=== PATIENT | male | born 1950 | race Hispanic/Latino ===

== ENCOUNTER 2017-09-30 16:56 | Inpatient (IN) ==
[2017-09-30 17:14] LABS: #Eosinphils 0.1 thou/uL (0.0-0.7); #Monocytes 0.7 thou/uL (0.11-0.59); #Neutrophils 7.8 thou/uL (1.40-6.50); %Basophils 0.3 % (0.0-1.0); %Eosinophils 0.7 % (0.0-10.0); %Monocytes 6.2 % (0.0-10.0); %Neutrophils 73.8 % (42.0-75.0); Hemoglobin 16.5 g/dL (14.0-18.0); Mean Corpuscular HGB CONC 35.1 g/dL (32.0-36.0); Mean Corpuscular Hemoglobin 31.7 pg (27.0-31.0); Mean Corpuscular Volume 90.2 fl (80.0-94.0); Mean Platelet Volume 10.6 fL (7.4-10.4); Platelet Count 157 thou/uL (130-400); RBC Distribution Width 13.4 % (11.5-14.5); Red Blood Cell (RBC) Count 5.22 mill/uL (4.70-6.10); White Blood Cell (WBC) Count 10.5 thou/uL (4.8-10.8)
[2017-09-30 17:19] LABS: INR-International Normal Ratio 1.1; PTT 33.7 SEC (22.9-36.1); Prothrombin Time 14.1 SEC (12.0-14.7)
[2017-09-30 17:27] LABS: ALT (SGPT) 30 U/L (8-55); AST (SGOT) 22 U/L (5-34); Albumin 4.3 g/dL (3.4-4.8); Alkaline Phosphatase 84 U/L (40-150); Anion Gap 12 mmol/L (10-20); BUN (Urea Nitrogen) 11 mg/dL (8.4-25.7); Bilirubin, Total 0.8 mg/dL (0.2-1.2); Calc. Creatinine Clearance 0 mL/min (70-130); Calcium 10.1 mg/dL (7.8-10.44); Carbon Dioxide 24 mmol/L (23-31); Chloride 105 mmol/L (98-107); Estimated GFR-MDRD Greater than 90; Globulin 3.7 g/dL (2.4-3.5); Glucose 100 mg/dL (80-115); Potassium 4.1 mmol/L (3.5-5.1); Sodium 137 mmol/L (136-145)
[2017-09-30 17:30] LABS: CKMB 2.9 ng/mL (0-6.6)
--- NOTE | 2017-09-30 18:34 | CT ---
CT OF THE BRAIN WITHOUT CONTRAST 09/30/16 COMPARISON: None. HISTORY: Numbness and tingling in the right side of the body and face with moderate facial drooping. Stroke al ert. TECHNIQUE: Multiple contiguous axial images were obtained in a CT of the brain without contrast. FINDINGS: The brain is normal in morphology and attenuation without focal lesions or confluent areas of infarct ion. There is no evidence of hydrocephalus, intracranial hemorrhage, or extra-axial fluid collection. The calvarium and overlying soft tissues are unremarkable. The visualized paranasal sinuses and masto id air cells are well aerated. IMPRESSION: No evidence of acute intracranial abnormality. Dr. Guerra notified of the findings at 5:06 p.m. on 09/30/17. POS: SAMPSON
[2017-09-30] MEDS ORDERED: Acetaminophen 325 MG TAB PO PRN (19:55)
[2017-09-30] MEDS ORDERED: Guaifenesin DM 100-10/5 ML UDCUP PO PRN (19:55)
[2017-09-30] MEDS ORDERED: Amlodipine 10 MG TAB PO SCH (20:45)
[2017-09-30] MEDS: Famotidine 20 MG TAB PO SCH (21:34)
[2017-09-30] MEDS: Atorvastatin Calcium 20 MG TAB PO SCH (21:34)
[2017-09-30] MEDS: Metoprolol Tartrate 25 MG TAB PO SCH (21:35)
[2017-09-30 22:16] VITALS: BMI 26.2
--- NOTE | 2017-09-30 23:49 | HP ---
REASON FOR ADMISSION: Transient ischemic attack with right-sided paraesthesias. 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 Around this time , the patient developed right-sided tingling and numbness. This happened mainly on the face, hand and later to the lower extremities. He also felt dizzy at the same time. He felt like his right side of his face was swollen. He was able to move all his extremities. As this was not relenting, the patient was finally brought to emergency room later in the evening by his children. He came to ER around 5:25 p.m. There are no complaints of chest pain , palpitation, PND or orthopnea. No prior stroke. 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 His last follow up with the primary care physician was almost 8 years back when he had flu-like illness. He does not follow up on a regular basis. He has no primary care physician in fact. 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 CURRENT MEDICATIONS: None. ALLERGIES: No known drug allergies. PERSONAL HISTORY: Does not abuse alcohol or drugs. No history of smoking. FAMILY HISTORY: Mother during labor. Father at the age of 92 years from old age. REVIEW OF SYSTEMS: The following complete review of systems was negative, unless otherwise mentioned in the HPI or below: Constitutional: Weight loss or gain, ability to conduct usual activities. Skin: Rash, itching. Eyes: Double vision, pain. ENT/Mouth: Nose bleeding, neck stiffness, pain, tenderness. Cardiovascular: Palpitations, dyspnea on exertion, orthopnea. Respiratory: Shortness of breath, wheezing, cough, hemoptysis, fever or night sweats. Gastrointestinal: Poor appetite, abdominal pain, heartburn, nausea, vomiting, constipation, or diarrhea. Genitourinary: Urgency, frequency, dysuria, nocturia. Musculoskeletal: Pain, swelling. Neurologic/Psychiatric: Anxiety, depression. Allergy/Immunologic: Skin rash, bleeding tendency. PHYSICAL EXAMINATION: GENERAL: The patient is a 66-year-old male who is currently not in any acute distress. VITAL SIGNS: On arrival, blood pressure was 196/96, pulse 76 per minute, respiratory rate 20 per minute, temperature 98 degrees Fahrenheit, saturating 95 % on room air. NECK: Supple, no elevated JVD. HEENT: Eyes: Extraocular muscles intact. Pupils reacting to light. Oral cavity: Mucous membranes are moist. No exudates or congestion. CARDIOVASCULAR: S1, S2 heard. Regular rhythm. RESPIRATORY: Air entry 1+ bilaterally. No rales or rhonchi. ABDOMEN: Soft, bowel sounds heard. No tenderness, rigidity or guarding. EXTREMITIES: The patient has chronic wasting of small muscles of his right hand and attributes this to him being a pitcher/baseball. No peripheral edema or calf tenderness. VASCULAR SYSTEM: Peripheral pulses 2+ bilateral, no ischemic ulcerations or gangrene. CENTRAL NERVOUS SYSTEM: The patient is alert, awake, oriented x3. Cranial nerves are grossly intact. Motor system strength is 5/5 in all 4 extremities. Tone is normal. Reflexes are 2+ bilateral. Babinski is downgoing. Sensation to touch is impaired on the right side when compared to left. Cerebellar signs are grossly intact. Gait was not tested. PSYCHIATRIC: The patient's mood is euthymic. No hallucinations or delusions. LABORATORY AND X-RAY FINDINGS: EKG done shows normal sinus rhythm at 73 beats per minute, has signs of LVH. CT brain done shows no acute cardiopulmonary abnormalities. White count of 10, H&H 16 and 47, platelet count 157 with 73% neutrophils. PT, INR, PTT within normal limits. Electrolytes are stable. BUN 11, creatinine 0.7, glucose 100. Liver enzymes within normal limits. First set of cardiac enzymes are negative. Albumin is 4.3. CLINICAL IMPRESSION AND PLAN: The patient will be under observation on telemetry for right-sided paraesthesias. We will obtain an MRI to rule out CVA. Echo with 2D Doppler and ultrasound carotids will also be obtained. He has uncontrolled hypertension and the patient does not take any medications. It is unclear if his symptoms are related to hypertension. Also, the patient has right hand small muscle wasting, but his strength is good. We will obtain a C-spine MRI as well to rule out compression if his cva is ruled out for his small muscle atrophy in right UE. He will be on full dose aspirin, small dose of Lipitor, Norvasc 10 mg daily and Lopressor 25 mg twice daily. Lipid profile in the morning and a Neurology consultation with Dr. Puri will be requested as well. We will continue to closely monitor him on the stroke unit. [facility]
[2017-10-01 05:19] LABS: #Eosinphils 0.1 thou/uL (0.0-0.7); #Lymphocytes 1.8 thou/uL (1.20-3.40); #Monocytes 0.8 thou/uL (0.11-0.59); #Neutrophils 7.4 thou/uL (1.40-6.50); %Basophils 0.3 % (0.0-1.0); %Lymphocytes 17.8 % (21.0-51.0); %Monocytes 7.6 % (0.0-10.0); %Neutrophils 73.3 % (42.0-75.0); Hemoglobin 16.3 g/dL (14.0-18.0); Mean Corpuscular Hemoglobin 31.5 pg (27.0-31.0); Mean Platelet Volume 10.6 fL (7.4-10.4); Platelet Count 171 thou/uL (130-400); RBC Distribution Width 13.5 % (11.5-14.5); Red Blood Cell (RBC) Count 5.16 mill/uL (4.70-6.10); White Blood Cell (WBC) Count 10.2 thou/uL (4.8-10.8)
[2017-10-01 05:59] LABS: Anion Gap 11 mmol/L (10-20); BUN (Urea Nitrogen) 10 mg/dL (8.4-25.7); Calc. Creatinine Clearance 106 mL/min (70-130); Calcium 9.8 mg/dL (7.8-10.44); Carbon Dioxide 25 mmol/L (23-31); Cardiac Risk 5.8 (Less than 4.5); Chloride 105 mmol/L (98-107); Cholesterol 181 mg/dl (< 200 Desired); Estimated GFR-MDRD Greater than 90; Glucose 115 mg/dL (80-115); HDL Cholesterol 31 mg/dL (>60 Neg Risk); LDL Cholesterol, Calculated 119 mg/dL; Sodium 137 mmol/L (136-145); Triglycerides 155 mg/dL (Less than 150)
[2017-10-01] MEDS ORDERED: Prevnar 13-Val Conj/PF 0.5 ML SYRINGE IM ONE (09:00)
[2017-10-01] MEDS ORDERED: FLU VACC TS2017-18 (>65YR) 0.5 ML SYRINGE IM ONE (09:00)
[2017-10-01] MEDS: Enoxaparin Sodium 40 MG/0.4 ML SYRINGE SC SCH (09:13)
[2017-10-01] MEDS: Aspirin 325 mg Enteric Coated Tablet PO SCH (09:14)
[2017-10-01] MEDS: Famotidine 20 MG TAB PO SCH ×2 (09:14→21:39)
[2017-10-01] MEDS: Metoprolol Tartrate 25 MG TAB PO SCH ×2 (09:14→21:39)
[2017-10-01] MEDS: Amlodipine 10 MG TAB PO SCH (09:14)
--- NOTE | 2017-10-01 09:18 | MRI ---
MRI BRAIN NONCONTRAST: HISTORY: TIA. FINDINGS: Within the left basal ganglia is an oval 0.8 cm focus of restricted diffusion with corresponding defe ct on the ADC mapping images. No other areas of infarct are apparent. The lesion shows subtle FLAIR signal. Mild chronic ischemic small-vessel disease is also apparent throughout the periventricular white matter of each cerebral hemisphere. There is no mass effect or shift of midline structures. IMPRESSION: Small focal area of acute infarct in the left thalamus at the expected vascular distribution of a duc lamic sugar cane planter. Call placed to [phone] was unanswered. Findings were relayed to Dominique in the emergency department at 0852 hours. CODE CR POS: SAMPSON
--- NOTE | 2017-10-01 12:08 | PDOC.PN ---
- Subjective Encounter Start Date: 10/01/17 Encounter Start Time: 09:00 Subjective: still has numbness over right half of body -: is able to move, per staff is leaning to right when amb -: no trouble swallowing - Objective Resuscitation Status: Resuscitation Status FULL:Full Resuscitation MAR Reviewed: Yes Vital Signs & Weight: Vital Signs (12 hours) Temp Pulse Resp BP BP Pulse Ox 10/01/17 11:38 98.5 F 61 18 154/74 H 96 10/01/17 09:14 62 181/83 H 10/01/17 08:00 97.8 F 62 12 181/83 H 93 L 10/01/17 04:00 97.7 F 62 16 134/63 100 Weight Weight 172 lb 8 oz I&O: 09/30/17 10/01/17 10/02/17 06:59 06:59 06:59 Intake Total 480 Balance 480 Result Diagrams: 10/01/17 05:01 10/01/17 05:01 Phys Exam - Physical Examination HEENT: PERRLA, moist MMs Neck: no JVD, supple Respiratory: no wheezing, no rales Cardiovascular: RRR, no significant murmur Gastrointestinal: soft, non-tender, positive bowel sounds Musculoskeletal: no edema, pulses present Neurological: non-focal, moves all 4 limbs chronic right hand small muscle atrophy Psychiatric: normal affect, A&O x 3 Dx/Plan (1) Acute CVA (cerebrovascular accident) Code(s): I63.9 - CEREBRAL INFARCTION, UNSPECIFIED Status: Acute Comment: left basal ganglia infarct (2) Hypertension, uncontrolled Code(s): I10 - ESSENTIAL (PRIMARY) HYPERTENSION Status: Acute Comment: controlled on current meds (3) Dyslipidemia Code(s): E78.5 - HYPERLIPIDEMIA, UNSPECIFIED Status: Acute - Plan is on asp, lipitor -: norvasc and lopressor -: await echo and carotid results -: will get urine cs, has increased freq of urination but no urgency/burning -: d/w son and pt at bedside * . Review of Systems - Medications/Allergies Allergies/Adverse Reactions: Allergies Allergy/AdvReac Type Severity Reaction Status Date / Time No Known Allergies Allergy Verified 10/01/17 00:31 Medications: Current Medications Acetaminophen (Tylenol) 650 mg PO Q4H PRN PRN Reason: Headache/Fever or Pain Amlodipine Besylate (Norvasc) 10 mg PO DAILY [facility] Last Admin: 10/01/17 09:14 Dose: 10 mg Aspirin (Ecotrin) 325 mg PO DAILY [facility] Last Admin: 10/01/17 09:14 Dose: 325 mg Atorvastatin Calcium (Lipitor) 20 mg PO HS [facility] Last Admin: 09/30/17 21:34 Dose: 20 mg Enoxaparin Sodium (Lovenox) 40 mg SC 0900 [facility] Last Admin: 10/01/17 09:13 Dose: 40 mg Famotidine (Pepcid) 20 mg PO BID [facility] Last Admin: 10/01/17 09:14 Dose: 20 mg Guaifenesin/Dextromethorphan (Robitussin Dm) 15 ml PO Q4H PRN PRN Reason: Cough Metoprolol Tartrate (Lopressor) 25 mg PO BID [facility] Last Admin: 10/01/17 09:14 Dose: 25 mg
[2017-10-01 12:50] LABS: Bilirubin Negative (Negative); Blood, Urine Negative (Negative); Clarity CLEAR (Clear); Glucose, Urine (Dipstick) Negative (Negative); Leukocyte Negative (Negative); Nitrite Negative (Negative); Protein, Urine (Dipstick) Negative (Neg-Trace); Specific Gravity, Urine 1.015 (1.002-1.036); pH, Urine 6.5 (5.0-9.0)
[2017-10-01 12:52] LABS: Bacteria/HPF None Seen HPF (None Seen); Hyaline Casts/LPF 0-3 HYALINE CAST LPF (0-3 Hyaline); RBC/HPF 0-3 HPF (0-3); Squamous Epithelial None Seen HPF (0-3); WBC/HPF 0-3 HPF (0-3)
--- NOTE | 2017-10-01 16:57 | ULT ---
CAROTID ULTRASOUND 10/01/17 HISTORY: Paresthesias. TECHNIQUE: Multiplanar arcos scale and color doppler image were obtained in a carotid ultrasound. Spectral analys is of the doppler waveforms were performed. FINDINGS: A moderate to severe amount of visualized plaque is seen is seen in both proximal internal carotid ar teries, right greater than left. The doppler waveforms are normal bilaterally. Peak systolic velocity in the right ICA is 149 cm/s. The peak systolic velocity in the right CCA is 7 2 cm/s. The right ICA/CCA ratio is 2.0. Peak systolic velocity in the left ICA is 111 cm/s. The peak systolic velocity in the left CCA is 82 cm/s. The left ICA/CCA ratio is 1.4. Both vertebral arteries demonstrate antegrade flow without focal stenosis. IMPRESSION: Moderate stenosis of 50-69% per velocity criteria in the right internal carotid artery. POS: SAMPSON
--- NOTE | 2017-10-01 19:39 | CON ---
DATE OF CONSULTATION: 10/01/2017 REFERRING PROVIDER: Enedina Means M.D. REASON FOR CONSULTATION: Right-sided numbness. HISTORY OF PRESENT ILLNESS: Mr. Matos is a pleasant 66-year-old male who has been concerned for evaluation of right-sided numbness. History is obtained from son who was present at bedside. Son reports that he was working with them and suddenly had complained of numbness on the right side of his face. He also started having numbness on the right hand and somewhat in the right lower extremity. He also felt somewhat dizzy and vertigo-type sensation. As his symptoms were not improving, they decided to bring him to the [facility] for further evaluation. He continues to have the numbness on the right side of the face and right hand, but has noted improvement in numbness in the right lower extremity. He denies headache, chest pain, palpitation, lightheadedness, dizziness, weakness on extremities, diplopia, vision changes, dysarthria, or dysphagia. Son reports that he has been under a lot of stress lately from personal and social life. This has resulted in somewhat of depressed mood and increase in his blood pressure. He has not been seeing any physician more than 15 years and currently does not take any medications. PAST MEDICAL HISTORY: None significant. PAST SURGICAL HISTORY: None significant. SOCIAL HISTORY: He denies smoking, alcohol use, or illicit drug use. FAMILY HISTORY: None significant. CURRENT MEDICATIONS: Please review MAR. ALLERGIES: No known drug allergies. REVIEW OF SYSTEMS: As mentioned in the HPI, otherwise negative. PHYSICAL EXAMINATION: VITAL SIGNS: Blood pressure 154/74, pulse of 61, temperature of 98.5, respirations of 18, O2 sats of 96% on room air. GENERAL: Well-developed, well-nourished male in no apparent distress. RESPIRATORY: Clear to auscultation bilaterally. CARDIOVASCULAR: Regular rate and rhythm. NEUROLOGIC: Mental status: The patient is awake, alert, oriented x3. Speech and language: Fluent speech. Cranial nerves: Pupils are 3 mm and reactive. Visual angulo are intact. External muscles are intact. No nystagmus noted. Face is symmetric. Tongue and uvula midline. Motor exam showed normal tone and bulk with 5/5 strength in both upper and lower extremities. Sensory: Sensation is intact and symmetric. Deep tendon reflexes 2+ reflexes in both upper and lower extremities. Babinski: Plantar responses flexion bilaterally. Coordination intact to [id number] bilaterally. LABORATORY DATA: Reviewed, which included CBC, CMP, lipid profile, and urinalysis, which is significant for glucose of 170, total cholesterol 181, LDL of 119, HDL of 31, triglycerides of 155, otherwise unremarkable. IMAGING STUDIES: MRI brain without contrast was reviewed, which showed acute left thalamic ischemic infarct. IMPRESSION: 1. Acute left thalamic ischemic infarct. 2. Hypertension. 3. Diabetes. 4. Hyperlipidemia. ASSESSMENT AND PLAN: Mr. Matos is a pleasant 66-year-old male who presented with the acute onset of right-sided numbness. His MRI does show an acute left thalamic ischemic infarct. This event is likely secondary to underlying risk factors including high blood pressure, diabetes, and cholesterol. At this time, I would recommend starting on aspirin at 325 mg daily for secondary stroke prevention. He will also benefit from atorvastatin 20 mg at bedtime for elevated cholesterol. He needs to be started on antihypertensive as well as antidiabetic medications to control his risk factors. His son has also mentioned that he has been having depressed mood and increased stress, which may be contributing to his blood pressure as well. I would recommend starting him on Celexa at 20 mg once a day for depression. Thank you for consultation. ROSEY
[2017-10-01] MEDS: Atorvastatin Calcium 20 MG TAB PO SCH (21:39)
[2017-10-02 08:12] VITALS: TEMP 97.3
[2017-10-02 08:20] LABS: Hemoglobin A1c 5.3 % (4.0-6.0)
[2017-10-02] MEDS: Famotidine 20 MG TAB PO SCH (09:09)
[2017-10-02] MEDS: Metoprolol Tartrate 25 MG TAB PO SCH (09:09)
[2017-10-02] MEDS: Aspirin 325 mg Enteric Coated Tablet PO SCH (09:09)
[2017-10-02] MEDS: Amlodipine 10 MG TAB PO SCH (09:10)
[2017-10-02] MEDS: Enoxaparin Sodium 40 MG/0.4 ML SYRINGE SC SCH (09:11)
[2017-10-02 09:16] VITALS: BP 139/69
--- NOTE | 2017-10-02 19:54 | DIS ---
DATE OF ADMISSION: 09/30/2017 DATE OF DISCHARGE: 10/02/2017 PRIMARY CARE PHYSICIAN: None. The patient is instructed to follow up with [facility] after disc harge. DISCHARGE DISPOSITION: Home with outpatient Rehab. DISCHARGE DIAGNOSES: 1. Acute cerebrovascular accident involving the left thalamus. 2. Hypertension. 3. Dyslipidemia. DISCHARGE MEDICATIONS: Aspirin 325 mg daily, metoprolol tartrate 25 mg p.o. b.i.d., Lipitor 20 mg da alma delia, and amlodipine 10 mg daily. PROCEDURES DONE IN THE HOSPITAL: 1. A transthoracic echocardiogram, which shows EF of 55% to 60% without any significant valvular abn ormalities. 2. CT scan of the brain upon presentation on 09/30/2017, which is negative for any acute intracrania l abnormalities. 3. Carotid Doppler ultrasound, which has moderate right-sided internal carotid artery stenosis 50% t o 69%. 4. MRI of the brain, which showed acute infarction of the left thalamus. CONSULTATIONS: Neurology, Dr. Khadra Puri. HISTORY OF PRESENT ILLNESS: Mr. Matos is a very pleasant 66-year-old male without any significant past medical history as he really does not follow up with any physician, who presented to the emergen cy room with complaints of right-sided paresthesia involving the face, arm, and leg with difficulty w alking because of the numbness in his legs. He was able to move all his extremities and upon present ation, he was hemodynamically stable. His blood pressure was quite elevated; however. It was 196/[address] was unremarkable and his blood work was quite normal as well. He was admitted to [facility] floor for further workup and rule out CVA. Please see admission history and physical for further details. He was started on aspirin and statin lipid profile was obtained. He was also started on an tihypertensives. HOSPITAL COURSE: The patient was seen by Dr. Puri from the Neurology Department. His MRI was consis tent with acute cerebrovascular accident involving the left thalamus. Dr. Puri recommended continuat ion of full dose aspirin as well as statin. His lipid panel showed elevated triglycerides at 155. O therwise, his total cholesterol was 181. However, his LDL was 119. He had elevated blood sugar of 1 70, but his hemoglobin A1c was normal at 5.3. He was started on amlodipine and metoprolol tartrate with very well control of his blood pressure. O utpatient rehab was arrange for him. Home health was offered, but they declined it at this time. Hi s family is very involved in his care and will be able to transport him for rehab. He was seen by oc cupational therapist, physical therapist, and speech therapist while in the hospital as well. He was seen and examined prior to discharge. PHYSICAL EXAMINATION: VITAL SIGNS: Temperature 97.3, pulse of 75, blood pressure 139/69, saturating 94% on room air, respi rations 12. GENERAL: He is in no acute distress, awake, alert, oriented x3. CHEST: Clear to auscultation without any wheezing, rales, or rhonchi. Rhythm is regular without any murmur, rubs, or gallops. NEURO: Neurological examination was largely nonfocal. His gait is somewhat ataxic of the problems w ith his balance because he has no feeling of his right leg and he is looking down when walking. For this reason, he will finish out the patient rehab. He is instructed to follow up with the primary care physician as well as Neurology, Dr. Puri on disch arge. He is instructed to have medication compliance and the patient and family verbalized understan ding.
== END 2017-10-02 13:04 | disposition home or self-care (01) | DRG 66 ==
LOC: ERS 16:56 → OBSVTOIN 18:18 → 2SE 18:18
PROVIDERS: ADMIT Internal Medicine; ATTEND Internal Medicine
PROC: B030ZZZ Magnetic Resonance Imaging (MRI) of Brain (ICD-10-PCS; principal; 2017-10-01)
DX: I63.9 Cerebral infarction, unspecified (principal); E11.9 Type 2 diabetes mellitus without complications; E78.5 Hyperlipidemia, unspecified; R20.0 Anesthesia of skin; R20.2 Paresthesia of skin; I10 Essential (primary) hypertension; Z89.022 Acquired absence of left finger(s)
CPT/HCPCS: 36415; 36416; 70450; 70551; 80048; 80053; 80061; 81001; 82553; 83036; 83735; 84484; 85025; 85610; 85730; 87086; 90471; 90670; 90682; 93005; 93306; 93880; G0008; G0009; G8978-GP-CK; G8979-GP-CJ; G8996-GN-CH; G8997-GN-CH; J1650; Q2036

== ENCOUNTER 2020-10-23 10:03 | Day surgery (SDC) | payer MEDICARE, MEDICAID ==
[2020-10-22 15:39] VITALS: BMI 24.2
[~2020-10-23 10:03] MED LIST: Lidocaine 1% PF 5 ML VIAL ONE; Metoclopramide HCl 10 MG/2 ML VIAL ONE; Ondansetron PF 4 MG/2 ML Vial ONE; PHENYLEPHRINE-NS 100 MCG/ML 10 ML SYRINGE ONE; PROPOFOL 200 MG/20 ML VIAL ONE
[2020-10-23] MEDS ORDERED: Levofloxacin 500 mg/D5W 100 ml Premix Bag ONE (10:44)
[2020-10-23] MEDS ORDERED: Famotidine/PF 20 mg/2ml Vial ONE (12:06)
[2020-10-23] MEDS ORDERED: Fentanyl 100 MCG/2 ML VIAL ONE (12:06)
[2020-10-23] MEDS ORDERED: Iothalamate Meglumine 60% 50 ML VIAL FS ONE (12:44)
[2020-10-23] MEDS ORDERED: Oxybutynin 5 MG TAB ONE (14:00)
[2020-10-23] MEDS ORDERED: Ketorolac Tromethamine 30 MG/ML VIAL ONE (14:02)
--- NOTE | 2020-10-23 14:25 | RAD ---
Retrograde pyelogram: 10/23/2020 COMPARISON: None HISTORY: Stent placement FINDINGS: A single radiograph demonstrates a normal lateral double-J ureteral stent. There is partial opacification of the renal collecting system, poorly assessed secondary to motion. IMPRESSION: Retrograde pyelogram as above.
--- NOTE | 2020-10-23 21:23 | OP ---
DATE OF PROCEDURE: 10/23/2020 PREOPERATIVE DIAGNOSES: Bladder stones, left ureteral stone, left hydronephrosis. POSTOPERATIVE DIAGNOSES: Bladder stones, left hydronephrosis. ANESTHESIA: General. COMPLICATIONS: None. ESTIMATED BLOOD LOSS: Minimal. SPECIMENS: Bladder stones. PROCEDURES PERFORMED: Cystoscopy with laser lithotripsy of bladder stone greater than 2.5 cm, left ureteroscopy with retrograde pyelogram, 6 x 26 double-J ureteral stent placement with string. DESCRIPTION OF PROCEDURE: After informed consent, the patient was taken to the operating room, transferred to the table under his own power. Anesthesia was established. A time-out was performed showing the correct patient, site, and procedure. Preoperative antibiotics were administered. He was prepped and draped in the lithotomy position. A 22-Kinyarwanda rigid cystoscope was advanced through the urethra noting a normal course and caliber of the urethra into the prostate, noting large coapting lateral lobes with no significant bladder neck obstruction. The bladder was systematically examined noting 5 stones at the base of the bladder, the largest of which was well over 2.5 cm. He does have [id number] trabeculation, but both ureters are normal in appearance. I then switched to the resectoscope and used a laser bridge to pass a 910 micron laser fiber, which I used to fragment all bladder stones into small pieces, which I was able to irrigate out. I then passed a wire into the left ureter. I switched to the semi-rigid ureteroscope. The scope was passed alongside the wire into the distal ureter and a retrograde pyelogram performed showing good filling of the ureter with mild hydronephrosis and hydroureter on the left side. The scope was passed all the way up into the renal pelvis, noting no evidence of stones and then carefully backed out again noting no stones. The scope was withdrawn and a 6 x 26 double-J ureteral stent with strings was passed over the wire with a curl in the kidney and curl in the bladder under fluoroscopic guidance. The strings were taped to the patient's penis. His bladder was drained. He was then awoken from anesthesia, transferred back to his hospital bed and taken to PACU in stable condition, where he will be discharged home upon recovery. Job ID: [id number]
== END 2020-10-23 15:40 | disposition home or self-care (01) ==
LOC: SDC 10:03
PROVIDERS: ATTEND Urology
PROC: 0TCB8ZZ Extirpation of Matter from Bladder, Via Natural or Artificial Opening Endoscopic (ICD-10-PCS; principal; 2020-10-23)
PROC: 0T9780Z Drainage of Left Ureter with Drainage Device, Via Natural or Artificial Opening Endoscopic (ICD-10-PCS; 2020-10-23)
DX: N21.0 Calculus in bladder (principal); N13.2 Hydronephrosis with renal and ureteral calculous obstruction; N40.1 Benign prostatic hyperplasia with lower urinary tract symptoms; N39.41 Urge incontinence; N32.81 Overactive bladder; Z79.899 Other long term (current) drug therapy; R33.9 Retention of urine, unspecified; I10 Essential (primary) hypertension
CPT/HCPCS: 74420; 81003; 81015; 82365; 87086; 88300; J1885; J1956; J2405; J2704; J2765; J3010; S0028

== ENCOUNTER 2020-10-23 21:21 | Emergency (ER) | payer MEDICARE, MEDICAID ==
[2020-10-23 22:57] LABS: Bilirubin Negative (Negative); Blood, Urine 3+ (Negative); Clarity Turbid (Clear); Glucose, Urine (Dipstick) Normal (Negative); Ketone, Urine Negative (Negative); Leukocyte 75 Leu/uL (Negative); Nitrite Negative (Negative); Protein, Urine (Dipstick) 100 mg/dL (Neg-Trace); RBC/HPF Greater than 50 HPF (0-3); Specific Gravity, Urine 1.015 (1.002-1.036); Squamous Epithelial None Seen HPF (0-3); Urobilinogen Normal mg/dL (Less than 2)
[2020-10-23 22:59] LABS: Bacteria/HPF Rare-Few HPF (None Seen)
== END 2020-10-23 23:15 | disposition home or self-care (01) ==
LOC: ERS 21:21
DX: R33.9 Retention of urine, unspecified (principal); I10 Essential (primary) hypertension; Z79.899 Other long term (current) drug therapy
CPT/HCPCS: 51702; 81003; 81015; 87086

== ENCOUNTER 2020-10-28 04:37 | Emergency (ER) | payer MEDICARE, MEDICAID ==
[2020-10-28 05:42] LABS: #Eosinphils 0.2 thou/uL (0.0-0.7); #Lymphocytes 1.1 thou/uL (1.20-3.40); #Monocytes 0.6 thou/uL (0.11-0.59); #Neutrophils 6.6 thou/uL (1.40-6.50); %Basophils 0.1 % (0.0-1.0); %Eosinophils 2.3 % (0.0-10.0); %Lymphocytes 13.5 % (21.0-51.0); %Monocytes 6.8 % (0.0-10.0); %Neutrophils 77.3 % (42.0-75.0); Hemoglobin 13.3 g/dL (14.0-18.0); Mean Corpuscular HGB CONC 34.7 g/dL (32.0-36.0); Mean Corpuscular Hemoglobin 30.2 pg (27.0-31.0); Mean Platelet Volume 9.5 fL (7.4-10.4); Platelet Count 227 thou/uL (130-400); White Blood Cell (WBC) Count 8.5 thou/uL (4.8-10.8)
[2020-10-28 05:54] LABS: Bilirubin Negative (Negative); Blood, Urine 2+ (Negative); Clarity Clear (Clear); Glucose, Urine (Dipstick) Normal (Negative); Ketone, Urine Negative (Negative); Leukocyte 75 Leu/uL (Negative); Nitrite Negative (Negative); Protein, Urine (Dipstick) 30 mg/dL (Neg-Trace); RBC/HPF Greater than 50 HPF (0-3); Specific Gravity, Urine 1.019 (1.002-1.036); Squamous Epithelial None Seen HPF (0-3); Urobilinogen Normal mg/dL (Less than 2); WBC/HPF 21-50 HPF (0-3)
[2020-10-28 05:55] LABS: Bacteria/HPF 1+ HPF (None Seen)
[2020-10-28 06:00] LABS: ALT (SGPT) 26 U/L (8-55); AST (SGOT) 17 U/L (5-34); Alkaline Phosphatase 80 U/L (40-110); Anion Gap 13 mmol/L (10-20); BUN (Urea Nitrogen) 16 mg/dL (8.4-25.7); Bilirubin, Total 0.4 mg/dL (0.2-1.2); Calc. Creatinine Clearance 0 mL/min (70-130); Calcium 9.2 mg/dL (7.8-10.44); Carbon Dioxide 25 mmol/L (23-31); Chloride 104 mmol/L (98-107); Globulin 3.3 g/dL (2.4-3.5); Glucose 125 mg/dL (83-110); Potassium 3.7 mmol/L (3.5-5.1); Protein, Total 7.3 g/dL (5.8-8.1); Sodium 138 mmol/L (136-145)
== END 2020-10-28 06:55 | disposition home or self-care (01) ==
LOC: ERS 04:37
DX: R33.9 Retention of urine, unspecified (principal); I10 Essential (primary) hypertension
CPT/HCPCS: 36415; 51702; 80053; 81003; 81015; 85025; 87086

== ENCOUNTER 2020-11-27 16:45 | Outpatient (CLI) | payer MEDICARE, MEDICAID ==
[2020-11-27 19:40] LABS: Anion Gap 12 mmol/L (10-20); BUN (Urea Nitrogen) 15 mg/dL (8.4-25.7); Calc. Creatinine Clearance 0 mL/min (70-130); Calcium 9.8 mg/dL (7.8-10.44); Carbon Dioxide 29 mmol/L (23-31); Chloride 104 mmol/L (98-107); Glucose 91 mg/dL (83-110); Potassium 4.2 mmol/L (3.5-5.1); Sodium 141 mmol/L (136-145)
[2020-11-27 19:42] LABS: Platelet Count 215 10x3/uL (150-450)
[2020-11-27 20:36] LABS: Hemoglobin 14.9 g/dL (13.5-17.5); Mean Corpuscular HGB CONC 34.7 g/dL (32.0-36.0); Mean Corpuscular Hemoglobin 29.8 pg (27.0-33.0); RBC Distribution Width 14.2 % (11.5-14.5)
[2020-11-28 02:10] LABS: SARS-CoV-2 PCR by NAA Not Detected (NotDetected)
== END 2020-11-27 16:46 | disposition home or self-care (01) ==
LOC: LABBT 16:45
PROVIDERS: ATTEND Urology
DX: Z01.818 Encounter for other preprocedural examination (principal); N40.1 Benign prostatic hyperplasia with lower urinary tract symptoms; R33.9 Retention of urine, unspecified; Z20.822 Contact with and (suspected) exposure to COVID-19
CPT/HCPCS: 80048; 85027; 87086; 93005; U0003; U0005; 87635; 93010

== ENCOUNTER 2020-12-02 07:27 | Observation (INO) | payer MEDICARE, MEDICAID ==
[2020-12-01 11:40] VITALS: BMI 25.8
[2020-12-02] MEDS ORDERED: Levofloxacin 500 mg/D5W 100 ml Premix Bag ONE (08:06)
[2020-12-02] MEDS ORDERED: Fentanyl 100 MCG/2 ML VIAL ONE ×2 (09:36→11:11)
[2020-12-02] MEDS ORDERED: Midazolam HCl 2 mg/2 ml Vial ONE (09:36)
[2020-12-02] MEDS ORDERED: PROPOFOL 200 MG/20 ML VIAL ONE (09:43)
[2020-12-02] MEDS ORDERED: Ondansetron PF 4 MG/2 ML Vial ONE (09:43)
[2020-12-02] MEDS ORDERED: diphenhydrAMINE 50 MG/ML VIAL ONE (09:43)
[2020-12-02] MEDS ORDERED: Dexamethasone 20 MG/5 ML VIAL ONE (09:43)
[2020-12-02] MEDS ORDERED: Ondansetron PF 4 MG/2 ML Vial IVP PRN (14:42)
[2020-12-02] MEDS ORDERED: HYDROcodone/Acetaminophen 5/325 mg Tablet PO PRN (14:42)
[2020-12-02] MEDS ORDERED: Zolpidem Tartrate 5 MG TAB PO PRN (14:42)
[2020-12-02] MEDS ORDERED: Oxybutynin 5 MG TAB PO PRN (14:42)
[2020-12-02] MEDS ORDERED: diphenhydrAMINE 50 MG/ML VIAL IVP PRN (14:42)
[2020-12-02] MEDS ORDERED: hydrALAZINE 20 MG/ML VIAL SLOW IVP PRN (14:42)
[2020-12-02] MEDS: Sodium Chloride 0.9% 1,000 ML IV SCH ×2 (15:22→20:40)
[2020-12-02] MEDS: Ibuprofen 600 MG TAB PO SCH ×2 (15:23→20:35)
[2020-12-02] MEDS: Metoprolol Tartrate 25 MG TAB PO SCH (20:35)
[2020-12-02] MEDS: Docusate 100 MG CAP PO SCH (20:35)
[2020-12-02] MEDS ORDERED: Atorvastatin Calcium 20 MG TAB PO SCH (21:00)
[2020-12-03] MEDS: Ibuprofen 600 MG TAB PO SCH ×2 (03:05→08:52)
[2020-12-03 08:21] VITALS: BP 154/66; TEMP 98
[2020-12-03] MEDS: Metoprolol Tartrate 25 MG TAB PO SCH (08:52)
[2020-12-03] MEDS: Docusate 100 MG CAP PO SCH (08:56)
[2020-12-03] MEDS ORDERED: Amlodipine 10 MG TAB PO SCH (09:00)
== END 2020-12-03 10:15 | disposition home or self-care (01) ==
LOC: SDC 07:27 → INTOOBSV 09:39 → T4-A 09:39
PROVIDERS: ADMIT Urology; ATTEND Urology
PROC: 0V507ZZ Destruction of Prostate, Via Natural or Artificial Opening (ICD-10-PCS; principal; 2020-12-02)
DX: N40.1 Benign prostatic hyperplasia with lower urinary tract symptoms (principal); R33.8 Other retention of urine; Z79.82 Long term (current) use of aspirin; Z79.899 Other long term (current) drug therapy
CPT/HCPCS: 52601; 88305; G0378 ×2; J1100; J1200; J1956; J2250; J2405; J2704; J3010

== ENCOUNTER 2022-04-26 13:20 | Emergency (ER) | payer OTHER, MEDICARE, MEDICAID ==
[2022-04-26] MEDS ORDERED: Acetaminophen 325 MG TAB ONE (14:57)
[2022-04-26] MEDS ORDERED: HYDROcodone/Acetaminophen 5/325 mg Tablet ONE ×2 (14:57→18:57)
[2022-04-26] MEDS ORDERED: Ketorolac Tromethamine 30 MG/ML VIAL ONE (16:06)
[2022-04-26] MEDS ORDERED: Boostrix 0.5 ML (Tdap) VIAL ONE (16:19)
[2022-04-26 16:27] LABS: ALT (SGPT) 16 U/L (8-55); AST (SGOT) 15 U/L (5-34); Albumin 3.9 g/dL (3.4-4.8); Alkaline Phosphatase 69 U/L (40-110); Anion Gap 17 mmol/L (10-20); BUN (Urea Nitrogen) 14 mg/dL (8.4-25.7); Bilirubin, Total 0.9 mg/dL (0.2-1.2); Calc. Creatinine Clearance 0 mL/min (70-130); Calcium 9.3 mg/dL (7.8-10.44); Carbon Dioxide 22 mmol/L (23-31); Chloride 105 mmol/L (98-107); Estimated GFR 97; Globulin 2.6 g/dL (2.4-3.5); Glucose 174 mg/dL (83-110); Potassium 3.7 mmol/L (3.5-5.1); Protein, Total 6.5 g/dL (5.8-8.1); Sodium 140 mmol/L (136-145)
[2022-04-26] MEDS ORDERED: CEFAZOLIN 2 GM VIAL ONE (16:42)
[2022-04-26] MEDS ORDERED: Triple Antibiotic Oint 1 GM Packet ONE ×2 (18:11→19:36)
[2022-04-26] MEDS ORDERED: Lidocaine 1% PF 5 ML VIAL ONE (19:00)
== END 2022-04-26 20:30 | disposition home or self-care (01) ==
LOC: ERS 13:20
DX: S52.031A Displaced fracture of olecranon process with intraarticular extension of right ulna, initial encounter for closed fracture (principal); S52.121A Displaced fracture of head of right radius, initial encounter for closed fracture; S01.81XA Laceration without foreign body of other part of head, initial encounter; S01.01XA Laceration without foreign body of scalp, initial encounter; M25.512 Pain in left shoulder; I10 Essential (primary) hypertension; Z86.73 Personal history of transient ischemic attack (TIA), and cerebral infarction without residual deficits; V89.9XXA Person injured in unspecified vehicle accident, initial encounter; Z79.84 Long term (current) use of oral hypoglycemic drugs; Z79.899 Other long term (current) drug therapy
CPT/HCPCS: 12011; 29105; 70450; 71045; 72125; 80053; 90471; 90715; 96365; 96375; J0690; J1885

== ENCOUNTER 2022-05-01 14:16 | Emergency (ER) | payer OTHER, MEDICARE, MEDICAID ==
[2022-05-01] MEDS ORDERED: Morphine 4 MG/ML VIAL ONE (15:30)
== END 2022-05-01 16:35 | disposition home or self-care (01) ==
LOC: ERS 14:16
DX: S01.111D Laceration without foreign body of right eyelid and periocular area, subsequent encounter (principal); E11.9 Type 2 diabetes mellitus without complications; Z86.73 Personal history of transient ischemic attack (TIA), and cerebral infarction without residual deficits; Z79.84 Long term (current) use of oral hypoglycemic drugs; Z79.899 Other long term (current) drug therapy; V89.9XXD Person injured in unspecified vehicle accident, subsequent encounter
CPT/HCPCS: 96372; 99282; J2270